=== PATIENT | female | born 1980 | race Two or more races ===

== ENCOUNTER 2024-11-18 12:46 | Emergency (ER) | payer SELFPAY ==
[~2024-11-18] VITALS: Ht 157.5 cm; Wt 67.5 kg
[2024-11-18 13:02] VITALS: PULSE 101
[2024-11-18 13:34] VITALS: BP 131/79; RESP 17; TEMP 97.5; O2SAT 98
--- NOTE | 2024-11-18 14:19 | DVH ---
CLINICAL INDICATION: DOG BITE TECHNIQUE: 3 radiographic views of the left hand were obtained. Comparison: None FINDINGS/IMPRESSION: There is no evidence of acute fracture or dislocation. Soft tissue swelling 3rd meta carpal phalangeal joint The visualized joint space is well maintained. The alignment is anatomical. There is no radiopaque foreign body. HS:Y
[2024-11-18] MEDS: cefTRIAXone SOD 500 MG VL IM ONE (14:26)
--- NOTE | 2024-11-18 14:40 | ED.PDOC ---
History of Present Illness(SKN HPI Comments 44-year-old female presented to the [facility] complaining of dog bites to both hands from her own dog There is one puncture wound to the interspace between the thumb and the index also there is also small superficial abrasions in the other hand and two bites one at the middle knuckle and one at the PIP joint at the knuckle both are swollen tender Chief Complaint: Animal Bite Time Seen by MD: 13:31 Primary Care Provider: marcos Allergies: Coded Allergies: NO KNOWN ALLERGIES (Unverified , 11/18/24) Home Meds Active Scripts Naproxen (NAPROSYN TABLET) 500 Mg Tb, 1 TAB PO BID for 10 Days, #20 TAB 1 Refill Prov:SONIDO LOCKHART MD 11/18/24 Amoxicillin & Pot Clavulanate (Augmentin) 500 Mg Tab, 1 TAB PO TID for 10 Days, #30 TAB Prov:SONIDO LOCKHART MD 11/18/24 Mode of Arrival: Ambulatory Past Medical History PAST MEDICAL HISTORY: Depression Surgical History: Denies all surgeries 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 History Family History Family History: Reviewed,noncontributory to illness, No family hx of Cancer, No family hx of DM, No family hx of Heart tana, No family hx of HTN, No family hx ofKidney tana, No family hx of Liver tana, No family hx of Lung tana, No family hx of Stroke Social History Smoker: Non-Smoker Alcohol: Denies ETOH Use Drugs: Denies Drug Use Constitutional: denies: chills, diaphoresis, fatigue, fever, malaise, sweats, weakness, others EENTM: denies: blurred vision, double vision, ear bleeding, ear discharge, ear drainage, ear pain, ear ringing, eye pain, eye redness, hearing loss, mouth pain, mouth swelling, nasal discharge, nose bleeding, nose congestion, nose pain, photophobia, tearing, throat pain, throat swelling, voice changes, others Respiratory: denies: cough, hemoptysis, orthopnea, SOB at rest, shortness of breath, SOB with excertion, stridor, wheezing, others Cardiovascular: denies: chest pain, dizzy spells, diaphoresis, Dyspnea on exertion, edema, irregular heart beat, left arm pain, lightheadedness, palpitations, PND, syncope, others Gastrointestinal: denies: abdomen distended, abdominal pain, blood streaked bowels, constipated, diarrhea, dysphagia, difficulty swallowing, hematemesis, melena, nausea, poor appetite, poor fluid intake, rectal bleeding, rectal pain, vomiting, others Genitourinary: denies: abnormal vagina bleeding, burning, dyspareunia, dysuria, flank pain, frequency, hematuria, incontinence, pain, , vagina d ischarge, urgency, others Neurological: denies: dizziness, fainting, headache, left sided numbness, left sided weakness, numbness, paresthesia, pre-existing deficit, right sided numbness, right sided weakness, seizure, speech problems, tingling, tremors, weakness, others Musculoskeletal: denies: back pain, gout, joint pain, joint swelling, muscle pain, muscle stiffness, neck pain, others Integumetry: reports: bruises, wounds, others (Dog bites on both hands multiple); denies: change in color, change in hair/nails, dryness, laceration, lesions, lumps, rash Allergic/Immunocompromised: denies: Difficulty Healing, Frequent Infections, Hives, Itching, others Hematologic/Lymphatic: denies: anemia, blood clots, easy bleeding, easy bruising, swollen glands, others Endocrine: denies: excessive hunger, excessive sweating, excessive thirst, excessive urination, flushing, intolerance to cold, intolerance to heat, unexplained weight gain, unexplained weight loss, others Psychiatric: reports: depression; denies: anxiety, bipolar disorder, hopeless, panic disorder, schizophrenia, sleepless, suicidal, others All Other Systems: Reviewed and Negative Physical Exam General Appearance: No Apparent Distress, Normal HEENT: Normal ENT Inspection, Pharynx Normal, TMs Normal Neck: Full Range of Motion, Non-Tender, Normal, Normal Inspection Respiratory: Chest Non-Tender, Lungs Clear, No Accessory Muscle Use, No Respiratory Distress, Normal Breath Sounds Cardiovascular: No Edema, No JVD, No Murmur, No Gallop, Normal Peripheral Pulses, Regular Rate/Rhythm Breast Exam: Deferred Gastrointestinal: No Organomegaly, Non Tender, No Pulsatile Mass, Normal Bowel Sounds, Soft Genitalia: Deferred Pelvic: Deferred Rectal: Deferred Extremities: Decreased range of motion, Inflammation, No pedal edema, Swelling, Tender Musculoskeletal : Location: Bilateral Extremity Location: Hand Apperance: Swelling, Limited ROM, Tenderness: Moderate, Other (Right hand interphalangeal space between the thumb and the index puncture wound bleeding mildly red and mildly inflamed on the left hand and the PIP joint of the middle finger are swollen multiple puncture wounds noted it is very inflamed the right tender and the index is fixed in the fixed in a flexion position) Neurologic: Alert, 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 Was a procedure done?: No Differential Diagnosis (INTG) Differential Diagnosis: Cellulitis, Contusion, Fracture, Hematoma, Puncture Wound Differential Diagnosis: N/A Differential Diagnosis: Cellulitis, Lacerations, Fracture, Neurovascular Injury, Retained Foreign Body Abscess: Cellulitis Differential Diagnosis: Cellulitis X-Ray, Labs, Meds, VS Vital Signs Date Time Temp Pulse Resp B/P (MAP) Pulse Ox O2 Delivery O2 Flow Rate FiO2 11/18/24 13:34 97.5 17 131/79 (96) 98 97.5 11/18/24 13:34 17 98 Room Air 11/18/24 13:02 97.5 101 17 131/79 (96) 98 Current Medications Medications (Trade) Dose Ordered Sig/Ralph Route Start Time Stop Time Status Last Admin Ceftriaxone Sodium (Rocephin) 1,000 mg ONCE ONCE IM 11/18/24 14:30 11/18/24 14:31 DC 11/18/24 14:44 Lidocaine HCl (Xylocaine 1%) 2.1ml ONCE ONCE IJ 11/18/24 14:30 11/18/24 14:31 DC 11/18/24 14:44 Diphtheria/ Tetanus/Acell Pertussis (Boostrix T-Dap) 0.5 ml ONCE ONCE IM 11/18/24 15:45 11/18/24 15:46 DC 11/18/24 15:43 X-Ray, Labs, Meds, VS Comment Course in the [facility] eventful patient came in with multiple dog bites to both hands mostly interphalangeal joint the right hand and the puncture wounds to the left hand for the 3rd knuckle and 3rd finger PIP joints The the hand is swollen very tender mostly the left side at the 3rd finger and 3rd metatarsal and knuckle with cellulitis inflammatory response edema painful and minimal morbility triggers the pain The x-ray of the right hand is normal Patient will receive a tetanus shot The hand will be cleaned with peroxide Neosporin ointment will be applied to both wounds dressing will be applied to the right hand and the splint to the left hand Time of 1ST Reevaluation: 13:30 Reevaluation 1ST: Unchanged Time of 2ND Reevaluation: 15:00 Reevaluation 2ND: Improved Consultation: PCP Patient Education/Counseling: Diagnosis, Treatment Family Education/Counseling: Diagnosis, Treatment, Prognosis, Need For Follow Up Departure 1 Departure Time of Disposition: 15:16 Impression: Primary Impression: Dog bite of right hand Qualified Codes: S61.451A - Open bite of right hand, initial encounter; W54.0XXA - Bitten by dog, initial encounter Additional Impressions: Bite wound of left hand Qualified Codes: S61.452A - Open bite of left hand, initial encounter Extensor tenosynovitis of finger Multiple puncture wounds Disposition: HOME / SELF CARE / HOMELESS Condition: Fair Additional Instructions: Clean and dry with peroxide then outlined the Neosporin ointment Take your medication as directed Follow up with the PCP or the [facility] within three days e-Prescriptions Naproxen (NAPROSYN TABLET) 500 Mg Tb 1 TAB PO BID for 10 Days, #20 TAB 1 Refill Prov: SONIDO LOCKHART MD 11/18/24 Amoxicillin & Pot Clavulanate (Augmentin) 500 Mg Tab 1 TAB PO TID for 10 Days, #30 TAB Prov: SONIDO LOCKHART MD 11/18/24 Discharged With: Self, Relative Critical Care Note Critical Care Time?: No Stability Stability form required: No Heart Score Heart Score: Heart Score Response (Comments) Value History N/A 0 EKG N/A 0 Age <45 0 Risk Factors No known risk factors 0 Troponin N/A 0 Total 0 SONIDO LOCKHART MD Nov 18, 2024 14:40
[2024-11-18] MEDS: cefTRIAXone SOD 1,000 MG VL IM ONE (14:44)
[2024-11-18] MEDS: LIDOCAINE 1% HCL (LOCAL ANESTH.) INJ 20ML MDV IJ ONE (14:44)
[2024-11-18] MEDS ORDERED: NAP500T PO (15:23)
[2024-11-18] MEDS ORDERED: AMOX500T86 PO (15:23)
[2024-11-18] MEDS: TETANUS-DIPTH-ACEL PERTUSSIS 0.5ML SYR Tdap IM ONE (15:43)
== END 2024-11-18 15:51 | disposition home or self-care (01) ==
LOC: ER 12:46
DX: S61.452A Open bite of left hand, initial encounter (principal); S61.451A Open bite of right hand, initial encounter; F32.A Depression, unspecified; Z79.899 Other long term (current) drug therapy; W54.0XXA Bitten by dog, initial encounter; Y93.89 Activity, other specified; Y92.89 Other specified places as the place of occurrence of the external cause; Y99.8 Other external cause status
CPT/HCPCS: 29125; 73130; 90471; 90715; 96372; 99284; J0696; J2003